=== PATIENT | male | born 1980 | race Caucasian/White ===

== ENCOUNTER 2019-06-12 21:19 | Day surgery (SDC) | payer BC ==
[2019-06-12] MEDS ORDERED: Ondansetron 4 MG/2 ML SDV IVPUSH ONE (23:42)
[2019-06-12] MEDS ORDERED: Sodium Chloride 0.9% 1,000 ML IV SCH (23:45)
--- NOTE | 2019-06-12 23:48 | EDM.PDOC ---
ED HPI GENERAL MEDICAL PROBLEM - General Chief Complaint: Abdominal Pain Stated Complaint: SIDE PAIN Time Seen by Provider: 06/12/19 23:27 Source of Information: Reports: Patient, Family History Limitations: Reports: No Limitations - History of Present Illness INITIAL COMMENTS - FREE TEXT/NARRATIVE: Mr. De is a very pleasant 39-year-old man with no chronic medical problems and no past surgical history, who now presents to the ED stating that he developed right upper quadrant abdominal pain around 15:30 this afternoon. He describes the pain as sharp and crampy in character. Initially it was constant , however, has now become more wax and wane. His pain is made worse if he is sitting, standing, or walking, made better if he lies supine. At times the pain has radiated to his right groin into his right flank. He has had nausea, but no emesis. No constipation or diarrhea. No urinary symptoms or gross hematuria. No prior similar symptoms. The patient took some TUMS several hours ago, which did not help. He did not take any other vtxf-qid-xtebtar medications. He last ate around 18:00. The patient has had about a 30 pound intentional weight loss since 02/21/2019, otherwise, however, he has not had any recent fever, chills, cough, dyspnea, chest pain, palpitations, nausea, vomiting, constipation, diarrhea, abdominal pain, urinary symptoms, recent bloody bowel movements or black bowel movements, recent joint aches, headaches, or rashes. The patient does not have a PCP. He does not recall when his last general physical exam was. He received an influenza vaccine this season. Right Middle Abdomen Pain Score (Numeric/FACES): 8 - Related Data Allergies Allergy/AdvReac Type Severity Reaction Status Date / Time No Known Allergies Allergy Verified 06/12/19 21:51 Home Meds: Home Meds . 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 ED EXAM, GI/ABD - Physical Exam Exam: See Below Exam Limited By: No Limitations General Appearance: Alert, WD/WN, No Apparent Distress Eyes: Bilateral: Normal Appearance, EOMI Ears: Normal External Exam, Hearing Grossly Normal Nose: Normal Inspection Throat/Mouth: Normal Inspection, Normal Lips, Normal Voice, No Airway Compromise Head: Atraumatic, Normocephalic Neck: Normal Inspection, Full Range of Motion Respiratory/Chest: No Respiratory Distress, Lungs Clear, Normal Breath Sounds, No Accessory Muscle Use Cardiovascular: Normal Peripheral Pulses, Regular Rate, Rhythm, No Edema, No Gallop, No JVD, No Murmur, No Rub GI/Abdominal Exam: Normal Bowel Sounds, Soft, No Organomegaly, No Distention, No Abnormal Bruit, No Mass, Tender (Right lower quadrant and far right abdomen only. Completely nontender elsewhere, including to the right upper quadrant and epigastrium. Rovsing sign absent. Psoas sign, obturator sign, and heel drop sign all present.) (Male) Exam: Deferred Rectal (Males) Exam: Deferred Back Exam: Normal Inspection, Full Range of Motion, CVA Tenderness (R). No: CVA Tenderness (L) Extremities: Normal Inspection, Normal Range of Motion, No Pedal Edema, Normal Capillary Refill Neurological: Alert, Oriented, Normal Cognition, No Motor/Sensory Deficits Psychiatric: Normal Affect Skin Exam: Warm, Dry, Intact, Normal Color, No Rash Course - Vital Signs Last Recorded V/S: Last Vital Signs Temp 36.7 C 06/12/19 21:47 Pulse 87 06/12/19 21:47 Resp 18 06/12/19 21:47 BP 108/75 06/12/19 21:47 Pulse Ox 94 L 06/12/19 21:47 - Orders/Labs/Meds Orders: Active Orders 24 hr Category Date Time Status Patient Status [ADT] Routine ADT 06/13/19 01:42 Active Abdomen Pelvis w Cont [CT] Stat Exams 06/12/19 23:42 Taken Sodium Chloride 0.9% [Normal Saline] 1,000 ml Med 06/12/19 23:45 Active IV ASDIRECTED metroNIDAZOLE/Normal Saline [Flagyl 500 MG in NS 100 ML Med 06/13/19 01:29 Active ] 500 mg Premix Bag 1 bag IV ONETIME Schedule Procedure [COMM] Stat Oth 06/13/19 01:50 Ordered Medication Orders Sodium Chloride (Normal Saline) 1,000 mls @ 150 mls/hr IV ASDIRECTED SUSAN Last Admin: 06/12/19 23:49 Dose: 150 mls/hr Metronidazole 500 mg/ Premix 100 mls @ 100 mls/hr IV ONETIME STA Stop: 06/13/19 02:28 Last Admin: 06/13/19 02:14 Dose: 100 mls/hr Labs: Laboratory Tests 06/12/19 06/12/19 06/13/19 Range/Units 23:45 23:45 01:10 WBC 20.18 H (4.23-9.07) K/mm3 RBC 5.10 (4.63-6.08) M/mm3 Hgb 14.6 (13.7-17.5) gm/dl Hct 43.3 (40.1-51.0) % MCV 84.9 (79.0-92.2) fl MCH 28.6 (25.7-32.2) pg MCHC 33.7 (32.2-35.5) g/dl RDW Std Deviation 43.0 (35.1-43.9) fL Plt Count 252 (163-337) K/mm3 MPV 10.3 (9.4-12.3) fl Neutrophils % (Manual) 85 H (40-60) % Band Neutrophils % 0 (0-10) % Lymphocytes % (Manual) 8 L (20-40) % Atypical Lymphs % 0 % Monocytes % (Manual) 7 (2-10) % Eosinophils % (Manual) 0 L (0.8-7.0) % Basophils % (Manual) 0 L (0.2-1.2) Platelet Estimate Adequate RBC Morph Comment Normal Sodium 140 (136-145) mEq/L Potassium 4.1 (3.5-5.1) mEq/L Chloride 103 (98-107) mEq/L Carbon Dioxide 23 (21-32) mEq/L Anion Gap 18.1 H (5-15) BUN 17 (7-18) mg/dL Creatinine 1.3 (0.7-1.3) mg/dL Est Cr Clr Drug Dosing 73.81 mL/min Estimated GFR (MDRD) > 60 (>60) mL/min BUN/Creatinine Ratio 13.1 L (14-18) Glucose 115 H (74-106) mg/dL Calcium 8.8 (8.5-10.1) mg/dL Total Bilirubin 0.7 (0.2-1.0) mg/dL AST 13 L (15-37) U/L ALT 34 (16-63) U/L Alkaline Phosphatase 74 (46-116) U/L Total Protein 7.1 (6.4-8.2) g/dl Albumin 3.9 (3.4-5.0) g/dl Globulin 3.2 gm/dL Albumin/Globulin Ratio 1.2 (1-2) Urine Color Yellow (Yellow) Urine Appearance Clear (Clear) Urine pH 6.0 (5.0-8.0) Ur Specific [place] 1.025 (1.005-1.030) Urine Protein Negative (Negative) Urine Glucose (UA) Negative (Negative) Urine Ketones 3+ H (Negative) Urine Occult Blood Trace-lysed H (Negative) Urine Nitrite Negative (Negative) Urine Bilirubin 1+ H (Negative) Urine Urobilinogen 0.2 (0.2-1.0) Ur Leukocyte Esterase Negative (Negative) U Hyaline Cast (Auto) 0-5 (0-5) /lpf Urine RBC 0-5 (0-5) /hpf Urine WBC 0-5 (0-5) /hpf Urine WBC Clumps Not seen (NOT SEEN) /hpf Urine Bacteria Rare (FEW) /hpf Urine Mucus Few (FEW) /hpf Meds: Medications Generic Name Dose Route Start Last Admin Trade Name Freq PRN Reason Stop Dose Admin Sodium Chloride 1,000 mls @ 150 mls/hr 06/12/19 23:45 06/12/19 23:49 Normal Saline IV 150 mls/hr ASDIRECTED SUSAN Administration Metronidazole 500 mg/ Premix 100 mls @ 100 mls/hr 06/13/19 01:29 06/13/19 02: 14 IV 06/13/19 02:28 100 mls/hr ONETIME STA Administration Discontinued Medications Generic Name Dose Route Start Last Admin Trade Name Freq PRN Reason Stop Dose Admin Bupivacaine HCl/Epinephrine Bitart Confirm 06/13/19 01:58 Marcaine 0.5%/Epinephrine 1:200,000 Administered 06/13/19 01:59 Dose 50 ml .ROUTE .STK-MED ONE Fentanyl Confirm 06/13/19 02:04 Sublimaze Administered 06/13/19 02:05 Dose 250 mcg .ROUTE .STK-MED ONE Cefoxitin Sodium 2 gm/ Premix 50 mls @ 100 mls/hr 06/13/19 01:28 06/13/19 01: 37 IV 06/13/19 01:57 100 mls/hr ONETIME STA Administration Lactated Ringer's Confirm 06/13/19 01:33 Ringers, Lactated Administered 06/13/19 01:34 Dose 1,000 mls @ as directed .ROUTE .STK-MED ONE Lidocaine HCl Confirm 06/13/19 02:03 Xylocaine-Mpf 1% Administered 06/13/19 02:04 Dose 4 mls @ as directed .ROUTE .STK-MED ONE Lidocaine/Epinephrine Confirm 06/13/19 01:58 Xylocaine 1% With Epinephrine 1:100,000 Administered 06/13/19 01:59 Dose 40 ml .ROUTE .STK-MED ONE Midazolam HCl Confirm 06/13/19 02:04 Versed 1 Mg/Ml Administered 06/13/19 02:05 Dose 2 mg .ROUTE .STK-MED ONE Ondansetron HCl 4 mg 06/12/19 23:42 06/12/19 23:50 Zofran IVPUSH 06/12/19 23:43 4 mg ONETIME ONE Administration Ondansetron HCl Confirm 06/13/19 02:03 Zofran Administered 06/13/19 02:04 Dose 4 mg .ROUTE .STK-MED ONE Propofol Confirm 06/13/19 02:03 Diprivan 20 Ml Administered 06/13/19 02:04 Dose 200 mg .ROUTE .STK-MED ONE Rocuronium Fisher Confirm 06/13/19 02:03 Zemuron Administered 06/13/19 02:04 Dose 50 mg .ROUTE .STK-MED ONE - Re-Assessments/Exams Free Text/Narrative Re-Assessment/Exam: 06/12/19 23:43 While the patient is indicating pain in his right upper quadrant, he is most tender in his right lower quadrant, and obturator, psoas, and heel drop signs are all present. He also has right CVA tenderness, and while this raises concern that the patient could have an unusual presentation of ureterolith, I think it still more likely that he has appendicitis. I have therefore ordered a work-up that includes blood work, a urinalysis, and a CT scan of his abdomen and pelvis with oral and IV contrast. In the meantime, the patient will be given IV fluid and IV Zofran. He declined an offer for pain medication. 06/13/19 01:21 CT of the abdomen and pelvis with oral and IV contrast as read by vRgina as " Acute appendicitis." 06/13/19 01:[address] Butsamante at 01:23. She will prefer to take the patient to the OR tonight, as opposed to tomorrow, because the OR schedule is already full. She asked that we start the patient on 2 g of IV cefoxitin and 500 mg of IV metronidazole. She will come to the ED to evaluate the patient. We are aware that there are no beds for the patient to be admitted to postoperatively. This was discussed between Dr. Bustamante, Valeria RN, and myself. Valeria HANDLEY is willing to take care of the patient postoperatively here in the ED. This will prevent the patient from having to be transferred to [place], or even farther, as both of [facility] hospitals may be full, as well. Departure - Departure Time of Disposition: 01:36 Disposition: DC/Tfer to [facility] Condition: Good Clinical Impression: Acute appendicitis Qualifiers: Acute appendicitis type: with localized peritonitis Appendicitis gangrene presence: unspecified whether gangrene present Appendicitis perforation presence : without perforation Appendicitis abscess presence: without abscess Qualified Code(s): K35.30 - Acute appendicitis with localized peritonitis, without perforation or gangrene - Discharge Information *PRESCRIPTION DRUG MONITORING PROGRAM REVIEWED*: Not Applicable *COPY OF PRESCRIPTION DRUG MONITORING REPORT IN PATIENT NURY: Not Applicable Sepsis Event Note - Evaluation Sepsis Screening Result: No Definite Risk - Focused Exam Vital Signs: Vital Signs Temp Pulse Resp BP Pulse Ox 06/12/19 21:47 36.7 C 87 18 108/75 94 L Date Exam was Performed: 06/13/19 Time Exam was Performed: 02:22 - My Orders Last 24 Hours: My Active Orders 06/12/19 23:42 Abdomen Pelvis w Cont [CT] Stat 06/12/19 23:45 Sodium Chloride 0.9% [Normal Saline] 1,000 ml IV ASDIRECTED 06/13/19 01:29 metroNIDAZOLE/Normal Saline [Flagyl 500 MG in NS 100 ML] 500 mg Premix Bag 1 bag IV ONETIME 06/13/19 01:42 Patient Status [ADT] Routine - Assessment/Plan Last 24 Hours: My Active Orders 06/12/19 23:42 Abdomen Pelvis w Cont [CT] Stat 06/12/19 23:45 Sodium Chloride 0.9% [Normal Saline] 1,000 ml IV ASDIRECTED 06/13/19 01:29 metroNIDAZOLE/Normal Saline [Flagyl 500 MG in NS 100 ML] 500 mg Premix Bag 1 bag IV ONETIME 06/13/19 01:42 Patient Status [ADT] Routine
[2019-06-13] MEDS ORDERED: cefOXitin 2 GM in Premix Bag 1 BAG IV STA (01:28)
[2019-06-13] MEDS ORDERED: metroNIDAZOLE/Normal Saline 500 MG in Premix Bag 1 BAG IV STA (01:29)
[2019-06-13] MEDS ORDERED: Lactated Ringers 1,000 ML ONE ×2 (01:33→03:11)
[2019-06-13] MEDS ORDERED: Lidocaine 1% with EPINEPHrine 1:100,000 20 ML MDV ONE (01:58)
[2019-06-13] MEDS ORDERED: Bupivacaine 0.5%/EPINEPHrine 1:200,000 50 ML MDV ONE (01:58)
--- NOTE | 2019-06-13 02:00 | PCM.PREANE ---
Preanesthetic Assessment - Procedure Proposed Procedure: lap appy - Anesthesia/Transfusion/Family Hx Anesthesia History: No Prior Anesthesia Family History of Anesthesia Reaction: No Transfusion History: No Prior Transfusion(s) - Review of Systems General: Fever (yesterday), Chills Pulmonary: No Symptoms Cardiovascular: No Symptoms Gastrointestinal: Abdominal Pain (yesterday) Neurological: No Symptoms Other: Reports: None - Physical Assessment NPO Status Date: 06/13/19 NPO Status Time: 01:00 (contrast dye) Vital Signs: Last Vital Signs Temp 98.0 F 06/12/19 21:47 Pulse 87 06/12/19 21:47 Resp 18 06/12/19 21:47 BP 108/75 06/12/19 21:47 Pulse Ox 94 L 06/12/19 21:47 Height: 5 ft 8 in Weight: 92.079 kg ASA Class: 2E Mental Status: Alert & Oriented x3 Airway Class: Mallampati = 1 Dentition: Reports: Normal Dentition Thyro-Mental Finger Breadths: 3 Mouth Opening Finger Breadths: 3 ROM/Head Extension: Full Lungs: Clear to Auscultation, Normal Respiratory Effort Cardiovascular: Regular Rate, Regular Rhythm - Lab Values: Laboratory Last Values WBC 20.18 K/mm3 (4.23-9.07) H 06/12/19 23:45 RBC 5.10 M/mm3 (4.63-6.08) 06/12/19 23:45 Hgb 14.6 gm/dl (13.7-17.5) 06/12/19 23:45 Hct 43.3 % (40.1-51.0) 06/12/19 23:45 MCV 84.9 fl (79.0-92.2) 06/12/19 23:45 MCH 28.6 pg (25.7-32.2) 06/12/19 23:45 MCHC 33.7 g/dl (32.2-35.5) 06/12/19 23:45 RDW Std Deviation 43.0 fL (35.1-43.9) 06/12/19 23:45 Plt Count 252 K/mm3 (163-337) 06/12/19 23:45 MPV 10.3 fl (9.4-12.3) 06/12/19 23:45 Neutrophils % (Manual) 85 % (40-60) H 06/12/19 23:45 Band Neutrophils % 0 % (0-10) 06/12/19 23:45 Lymphocytes % (Manual) 8 % (20-40) L 06/12/19 23:45 Atypical Lymphs % 0 % 06/12/19 23:45 Monocytes % (Manual) 7 % (2-10) 06/12/19 23:45 Eosinophils % (Manual) 0 % (0.8-7.0) L 06/12/19 23:45 Basophils % (Manual) 0 (0.2-1.2) L 06/12/19 23:45 Platelet Estimate Adequate 06/12/19 23:45 RBC Morph Comment Normal 06/12/19 23:45 Sodium 140 mEq/L (136-145) 06/12/19 23:45 Potassium 4.1 mEq/L (3.5-5.1) 06/12/19 23:45 Chloride 103 mEq/L (98-107) 06/12/19 23:45 Carbon Dioxide 23 mEq/L (21-32) 06/12/19 23:45 Anion Gap 18.1 (5-15) H 06/12/19 23:45 BUN 17 mg/dL (7-18) 06/12/19 23:45 Creatinine 1.3 mg/dL (0.7-1.3) 06/12/19 23:45 Est Cr Clr Drug Dosing 73.81 mL/min 06/12/19 23:45 Estimated GFR (MDRD) > 60 mL/min (>60) 06/12/19 23:45 BUN/Creatinine Ratio 13.1 (14-18) L 06/12/19 23:45 Glucose 115 mg/dL (74-106) H 06/12/19 23:45 Calcium 8.8 mg/dL (8.5-10.1) 06/12/19 23:45 Total Bilirubin 0.7 mg/dL (0.2-1.0) 06/12/19 23:45 AST 13 U/L (15-37) L 06/12/19 23:45 ALT 34 U/L (16-63) 06/12/19 23:45 Alkaline Phosphatase 74 U/L (46-116) 06/12/19 23:45 Total Protein 7.1 g/dl (6.4-8.2) 06/12/19 23:45 Albumin 3.9 g/dl (3.4-5.0) 06/12/19 23:45 Globulin 3.2 gm/dL 06/12/19 23:45 Albumin/Globulin Ratio 1.2 (1-2) 06/12/19 23:45 Urine Color Yellow (Yellow) 06/13/19 01:10 Urine Appearance Clear (Clear) 06/13/19 01:10 Urine pH 6.0 (5.0-8.0) 06/13/19 01:10 Ur Specific [place] 1.025 (1.005-1.030) 06/13/19 01:10 Urine Protein Negative (Negative) 06/13/19 01:10 Urine Glucose (UA) Negative (Negative) 06/13/19 01:10 Urine Ketones 3+ (Negative) H 06/13/19 01:10 Urine Occult Blood Trace-lysed (Negative) H 06/13/19 01:10 Urine Nitrite Negative (Negative) 06/13/19 01:10 Urine Bilirubin 1+ (Negative) H 06/13/19 01:10 Urine Urobilinogen 0.2 (0.2-1.0) 06/13/19 01:10 Ur Leukocyte Esterase Negative (Negative) 06/13/19 01:10 U Hyaline Cast (Auto) 0-5 /lpf (0-5) 06/13/19 01:10 Urine RBC 0-5 /hpf (0-5) 06/13/19 01:10 Urine WBC 0-5 /hpf (0-5) 06/13/19 01:10 Urine WBC Clumps Not seen /hpf (NOT SEEN) 06/13/19 01:10 Urine Bacteria Rare /hpf (FEW) 06/13/19 01:10 Urine Mucus Few /hpf (FEW) 06/13/19 01:10 - Allergies Allergies/Adverse Reactions: Allergies Allergy/AdvReac Type Severity Reaction Status Date / Time No Known Allergies Allergy Verified 06/12/19 21:51 - Blood Blood Available: No - Acknowledgements Anesthesia Type Planned: General Anesthesia Pt an Appropriate Candidate for the Planned Anesthesia: Yes Alternatives and Risks of Anesthesia Discussed w Pt/Guardian: Yes Pt/Guardian Understands and Agrees with Anesthesia Plan: Yes PreAnesthesia Questionnaire - Past Health History Medical/Surgical History: Denies Medical/Surgical History Cardiovascular History: Reports: None Respiratory History: Reports: None Gastrointestinal History: Reports: None Endocrine/Metabolic History: Reports: Obesity/BMI 30+ - SUBSTANCE USE Smoking Status *Q: Never Smoker Tobacco Use Within Last Twelve Months: No Second Hand Smoke Exposure: No Days Per Week of Alcohol Use: 2 Number of Drinks Per Day: 1 Total Drinks Per Week: 2 Recreational Drug Use History: No - HOME MEDS Home Medications: Home Meds . [No Known Home Meds] 06/12/19 [History] - CURRENT (IN HOUSE) MEDS Current Meds: Current Medications Sodium Chloride (Normal Saline) 1,000 mls @ 150 mls/hr IV ASDIRECTED SUSAN Last Admin: 06/12/19 23:49 Dose: 150 mls/hr Cefoxitin Sodium 2 gm/ Premix 50 mls @ 100 mls/hr IV ONETIME STA Stop: 06/13/19 01:57 Last Admin: 06/13/19 01:37 Dose: 100 mls/hr Metronidazole 500 mg/ Premix 100 mls @ 100 mls/hr IV ONETIME STA Stop: 06/13/19 02:28 Discontinued Medications Lactated Ringer's (Ringers, Lactated) Confirm Administered Dose 1,000 mls @ as directed .ROUTE .STK-MED ONE Stop: 06/13/19 01:34 Ondansetron HCl (Zofran) 4 mg IVPUSH ONETIME ONE Stop: 06/12/19 23:43 Last Admin: 06/12/19 23:50 Dose: 4 mg
--- NOTE | 2019-06-13 02:01 | PCM.HP.2 ---
H&P History of Present Illness - General Date of Service: 06/13/19 Admit Problem/Dx: Admission Diagnosis/Problem Admission Diagnosis/Problem Appendicitis Source of Information: Patient, Provider History Limitations: Reports: No Limitations - History of Present Illness Initial Comments - Free Text/Narative: The patient is a 39-year-old gentleman who presents with a 1 day history of abdominal pain. He reports the pain started in the right upper quadrant and migrated to the right lower quadrant. He has had loss of appetite. He denies any nausea vomiting diarrhea or hematochezia. He has no prior occurrence of this pain. Seen and evaluated in the emergency department. He had laboratory evaluation which revealed a white count of 20,000. He also underwent a CT of the abdomen and pelvis which showed a distended appendix consistent with appendicitis Right Middle Abdomen Pain Score (Numeric/FACES): 8 - Related Data Allergies/Adverse Reactions: Allergies Allergy/AdvReac Type Severity Reaction Status Date / Time No Known Allergies Allergy Verified 06/12/19 21:51 Home Medications: Home Meds . 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) H&P Review of Systems - Review of Systems: Review Of Systems: See Below General: Reports: Fever HEENT: Reports: No Symptoms Pulmonary: Reports: No Symptoms Cardiovascular: Reports: No Symptoms Gastrointestinal: Reports: Abdominal Pain, Anorexia Genitourinary: Reports: No Symptoms Musculoskeletal: Reports: No Symptoms Skin: Reports: No Symptoms Hematologic/Lymphatic: Reports: No Symptoms Exam - Exam Exam: See Below - Vital Signs Vital Signs: Last Vital Signs Temp 36.7 C 06/12/19 21:47 Pulse 87 06/12/19 21:47 Resp 18 06/12/19 21:47 BP 108/75 06/12/19 21:47 Pulse Ox 94 L 06/12/19 21:47 Weight: 92.079 kg - Exam Quality Assessment: No: Supplemental Oxygen General: Alert, Oriented HEENT: Conjunctiva Clear, EOMI Neck: Supple Lungs: Normal Respiratory Effort GI/Abdominal Exam: Soft, Guarding, Rebound (in RLQ), Tender (in RLQ) Extremities: Normal Inspection, No Pedal Edema Peripheral Pulses: 2+: Dorsalis Pedis (L), Dorsalis Pedis (R) Skin: Warm, Dry, Intact Neurological: Cranial Nerves Intact Neuro Extensive - Mental Status: Normal Mood/Affect - Patient Data Lab Results Last 24 hrs: Laboratory Results - last 24 hr 06/12/19 06/12/19 06/13/19 Range/Units 23:45 23:45 01:10 WBC 20.18 H (4.23-9.07) K/mm3 RBC 5.10 (4.63-6.08) M/mm3 Hgb 14.6 (13.7-17.5) gm/dl Hct 43.3 (40.1-51.0) % MCV 84.9 (79.0-92.2) fl MCH 28.6 (25.7-32.2) pg MCHC 33.7 (32.2-35.5) g/dl RDW Std Deviation 43.0 (35.1-43.9) fL Plt Count 252 (163-337) K/mm3 MPV 10.3 (9.4-12.3) fl Neutrophils % (Manual) 85 H (40-60) % Band Neutrophils % 0 (0-10) % Lymphocytes % (Manual) 8 L (20-40) % Atypical Lymphs % 0 % Monocytes % (Manual) 7 (2-10) % Eosinophils % (Manual) 0 L (0.8-7.0) % Basophils % (Manual) 0 L (0.2-1.2) Platelet Estimate Adequate RBC Morph Comment Normal Sodium 140 (136-145) mEq/L Potassium 4.1 (3.5-5.1) mEq/L Chloride 103 (98-107) mEq/L Carbon Dioxide 23 (21-32) mEq/L Anion Gap 18.1 H (5-15) BUN 17 (7-18) mg/dL Creatinine 1.3 (0.7-1.3) mg/dL Est Cr Clr Drug Dosing 73.81 mL/min Estimated GFR (MDRD) > 60 (>60) mL/min BUN/Creatinine Ratio 13.1 L (14-18) Glucose 115 H (74-106) mg/dL Calcium 8.8 (8.5-10.1) mg/dL Total Bilirubin 0.7 (0.2-1.0) mg/dL AST 13 L (15-37) U/L ALT 34 (16-63) U/L Alkaline Phosphatase 74 (46-116) U/L Total Protein 7.1 (6.4-8.2) g/dl Albumin 3.9 (3.4-5.0) g/dl Globulin 3.2 gm/dL Albumin/Globulin Ratio 1.2 (1-2) Urine Color Yellow (Yellow) Urine Appearance Clear (Clear) Urine pH 6.0 (5.0-8.0) Ur Specific [place] 1.025 (1.005-1.030) Urine Protein Negative (Negative) Urine Glucose (UA) Negative (Negative) Urine Ketones 3+ H (Negative) Urine Occult Blood Trace-lysed H (Negative) Urine Nitrite Negative (Negative) Urine Bilirubin 1+ H (Negative) Urine Urobilinogen 0.2 (0.2-1.0) Ur Leukocyte Esterase Negative (Negative) U Hyaline Cast (Auto) 0-5 (0-5) /lpf Urine RBC 0-5 (0-5) /hpf Urine WBC 0-5 (0-5) /hpf Urine WBC Clumps Not seen (NOT SEEN) /hpf Urine Bacteria Rare (FEW) /hpf Urine Mucus Few (FEW) /hpf Result Diagrams: 06/12/19 23:45 06/12/19 23:45 Sepsis Event Note - Evaluation Sepsis Screening Result: No Definite Risk - Focused Exam Vital Signs: Vital Signs Temp Pulse Resp BP Pulse Ox 06/12/19 21:47 36.7 C 87 18 108/75 94 L Date Exam was Performed: 06/13/19 Time Exam was Performed: 01:56 *Q Meaningful Use (ADM) - VTE Risk Assess *Q Each Risk Factor Represents 1 Point: Minor Surgery Planned Total Score 1 Point Risk Factors: 1 - Problem List (1) Acute appendicitis SNOMED Code(s): 45917888 ICD Code: K35.80 - UNSPECIFIED ACUTE APPENDICITIS Status: Acute Current Visit: Yes Qualifiers: Acute appendicitis type: with localized peritonitis Appendicitis gangrene presence: unspecified whether gangrene present Appendicitis perforation presence: without perforation Appendicitis abscess presence: without abscess Qualified Code(s): K35.30 - Acute appendicitis with localized peritonitis, without perforation or gangrene Problem List Initiated/Reviewed/Updated: Yes Orders Last 24hrs: Active Orders 24 hr Category Date Time Status Patient Status [ADT] Routine ADT 06/13/19 01:42 Active Abdomen Pelvis w Cont [CT] Stat Exams 06/12/19 23:42 Taken Sodium Chloride 0.9% [Normal Saline] 1,000 ml Med 06/12/19 23:45 Active IV ASDIRECTED cefOXitin [Mefoxin in Dextrose,Iso-Osm 2 GM/50 ML] 2 gm Med 06/13/19 01:28 Active Premix Bag 1 bag IV ONETIME metroNIDAZOLE/Normal Saline [Flagyl 500 MG in NS 100 ML Med 06/13/19 01:29 Active ] 500 mg Premix Bag 1 bag IV ONETIME Schedule Procedure [COMM] Stat Oth 06/13/19 01:50 Ordered Medication Orders Sodium Chloride (Normal Saline) 1,000 mls @ 150 mls/hr IV ASDIRECTED [facility] Last Admin: 06/12/19 23:49 Dose: 150 mls/hr Cefoxitin Sodium 2 gm/ Premix 50 mls @ 100 mls/hr IV ONETIME STA Stop: 06/13/19 01:57 Last Admin: 06/13/19 01:37 Dose: 100 mls/hr Metronidazole 500 mg/ Premix 100 mls @ 100 mls/hr IV ONETIME STA Stop: 06/13/19 02:28 Assessment/Plan Comment:: 39 y/o man with acute appendicitis - plan for laparoscopic appendectomy, possible open. Discussed risks of bleeding , infection, and damage to surrounding organs. His written consent was obtained. - IV cefoxitin and IV metronidazole - IV fluid resuscitation - will assess need for inpatient stay based on intraoperative findings. Coretta Barker MD General Surgery
[2019-06-13] MEDS ORDERED: Rocuronium 50 MG/5 ML Vial ONE (02:03)
[2019-06-13] MEDS ORDERED: Lidocaine 1% 4 ML ONE (02:03)
[2019-06-13] MEDS ORDERED: Ondansetron 4 MG/2 ML SDV ONE (02:03)
[2019-06-13] MEDS ORDERED: Propofol 200 MG/20 ML SDV ONE (02:03)
[2019-06-13] MEDS ORDERED: fentaNYL 250 MCG/5 ML SDV ONE (02:04)
[2019-06-13] MEDS ORDERED: Midazolam 1 MG/ML 2 ML SDV ONE (02:04)
[2019-06-13] MEDS ORDERED: Ketorolac 30 MG/ML SDV ONE (02:26)
[2019-06-13] MEDS ORDERED: fentaNYL 100 MCG/2 ML SDV IVPUSH PRN (02:29)
[2019-06-13] MEDS ORDERED: HYDROmorphone 0.5 MG/0.5 ML Syringe IVPUSH PRN (02:29)
[2019-06-13] MEDS ORDERED: Ondansetron 4 MG/2 ML SDV IVPUSH PRN (02:29)
[2019-06-13] MEDS ORDERED: ePHEDrine Sulfate/0.9% NaCl/Pf 25 MG/5 ML SYRINGE IV ONE (02:46)
[2019-06-13] MEDS ORDERED: fentaNYL 100 MCG/2 ML SDV ONE (03:07)
[2019-06-13] MEDS ORDERED: HYDROmorphone 0.5 MG/0.5 ML Syringe ONE (03:19)
--- NOTE | 2019-06-13 03:40 | PCM.OPNOTE ---
- General Post-Op/Procedure Note Date of Surgery/Procedure: 06/13/19 Operative Procedure(s): Laparoscopic appendectomy Findings: Acute appendicitis, not perforated Pre Op Diagnosis: Acute appendicitis Post-Op Diagnosis: Same Anesthesia Technique: General ET Tube Primary Surgeon: Coretta Barker Anesthesia Provider: Allen Brown Pathology: appendix Fluid Replacement, Intraop: 1,500 Output, Urine Amount: 0 EBL in mLs: 10 Complications: none apparent Condition: Good
--- NOTE | 2019-06-13 03:48 | PCM.PRNOTE ---
- Free Text/Narrative Note: Operative Report Date of surgery: June 13, 2019 Preoperative diagnosis: acute appendicitis. Postoperative diagnosis: same Procedure performed: laparoscopic appendectomy Surgeon: Dr. Coretta Barker Anesthesia: General Parachute Inspector: Allen Brown CRNA Estimated blood loss 10 mL IV fluids: 1500 mL Urine output: 0 mL, patient voided prior to entering the operating room Drains and lines: None Findings: Nonperforated acute appendicitis, visualized left indirect inguinal hernia Pathology: Appendix Indications for procedure: Is a 39-year-old male who presented with acute appendicitis. He was diagnosed via clinical picture and CT scan. He was consented for laparoscopic appendectomy after discussion of risks of bleeding infection and damage to surrounding intra-abdominal structures. His written consent was obtained. Description of procedure: The patient was taken back to the operating room and placed in supine position on the operating table. SCD boots were in place and functional prior to the start of the procedure. Preoperative antibiotics were administered; metronidazole 500 mg IV and cefoxitin 2 g IV. The patient had successful induction of general anesthesia and was intubated without difficulty. Pt was then prepped and draped in standard surgical fashion and a timeout was performed. We began by making a 15 mm incision in the infraumbilical skin and deepened down to level of the fascia which was then grasped and incised sharply. We entered the peritoneum and then placed stay sutures of 0 Vicryl on the fascial edges. A 12 mm Amor port was then placed into the umbilicus and the balloon was inflated. The abdomen was insufflated to 15 mmHg a 5 mm camera was inserted. There was no evidence of any injury created from entry into the abdomen. A TA P block was performed using mixed 1% lidocaine with epinephrine and 0.5% bupivacaine with epinephrine . We then proceeded to place a 5 mm port under direct visualization in the suprapubic midline and an additional 5mm port in the left lower quadrant. During this process we did visualize a moderate sized left indirect inguinal hernia. The patient was then positioned in Trendelenburg with right side elevated and we proceeded to mobilize the appendix. The appendix was retrocecal with significant adhesions between the terminal ileum cecum and appendix. The terminal ileum was also adherent to the abdominal wall. The LigaSure was used to take down these adhesions and attachment points to visualize the retrocecal appendix. The appendix was then mobilized off of the terminal ileum. The mesoappendix was taken down with the LigaSure. The appendix was then taken with the tissue stapler. The specimen was in place in the Endo Catch bag. We then inspected the area. There was no active bleeding at the end of this case. The abdomen was then desufflated and the umbilical fascia closed with 0 Vicryl sutures and the stay sutures were tied, effectively closing the umbilical port site. The skin was then reapproximated at all port sites using a 4-0 Monocryl subcutaneous stitch and covered with Dermabond surgical glue. The patient tolerated the procedure. He was extubated and transported to the PACU in stable condition. All sponge and needle counts were correct. Coretta Barker MD General Surgery
[2019-06-13] MEDS ORDERED: Acetaminophen/HYDROcodone 325-5 MG Tab PO PRN (03:53)
--- NOTE | 2019-06-13 03:53 | PCM.POSTAN ---
POST ANESTHESIA ASSESSMENT - MENTAL STATUS Mental Status: Alert, Oriented - VITAL SIGNS Vital Signs: Last Vital Signs Temp 98.0 F 06/12/19 21:47 Pulse 87 06/12/19 21:47 Resp 18 06/12/19 21:47 BP 108/75 06/12/19 21:47 Pulse Ox 94 L 06/12/19 21:47 135/85 98% 105 13 97.8 - RESPIRATORY Respiratory Status: Respiratory Rate WNL, Airway Patent, O2 Saturation Stable, Supplemental Oxygen - CARDIOVASCULAR CV Status: Pulse Rate WNL, Blood Pressure Stable - GASTROINTESTINAL GI Status: No Symptoms - PAIN Pain Score: 0 - POST OP HYDRATION Hydration Status: Adequate & Stable
--- NOTE | 2019-06-13 04:17 | PCM48HPAN ---
Post Anesthesia Note - EVALUATION WITHIN 48HRS OF ANESTHETIC Vital Signs in Normal Range: Yes Patient Participated in Evaluation: Yes Respiratory Function Stable: Yes Airway Patent: Yes Cardiovascular Function Stable: Yes Hydration Status Stable: Yes Pain Control Satisfactory: Yes Nausea and Vomiting Control Satisfactory: Yes Mental Status Recovered: Yes Vital Signs: Last Vital Signs Temp 98.0 F 06/13/19 04:00 Pulse 97 06/13/19 04:00 Resp 13 06/13/19 04:02 BP 125/75 06/13/19 04:00 Pulse Ox 98 06/13/19 04:02
--- NOTE | 2019-06-13 07:17 | CT ---
CT abdomen and pelvis Technique: Multiple axial sections were obtained from above the dome of the diaphragm inferiorly through the pubic symphysis. Intravenous contrast and oral contrast utilized. Delayed images were also obtained through the abdomen and pelvis. Comparison: No prior abdominal imaging. Findings: Short appendix is seen. Appendix is enlarged shows several increased areas of calcification presumably due to appendicoliths. Inflammatory change is seen around this finding and findings are felt compatible with appendicitis. Other findings: The visualized lung bases show nothing acute. Liver contains no focal parenchymal abnormality. Spleen appears within normal limits. Low density lesion is identified within the upper right kidney which is felt compatible with a cyst measuring about 6 mm. Very minimal cortical lesion is noted within the mid to lower right kidney and upper left kidney believed to represent other small cysts which are too small to measure by Hounsfield unit measurements. Adrenal glands show no nodule. Pancreas is within normal limits. Gallbladder contains no calcified gallstones. Aorta shows no aneurysm. No retroperitoneal adenopathy or mesenteric abnormalities are seen. No pelvic mass or adenopathy is identified. No free fluid is seen. Delayed images show contrast excretion from both kidneys. Contrast is noted within both ureters as well as bladder with no ureteral obstruction. Bone window settings were reviewed which appear within normal limits for the patient's age. No acute osseous finding is appreciated. Impression: 1. Findings compatible with appendicitis as described above. 2. Other findings believed to be incidental and nonacute. Diagnostic code #5 This report was dictated in [place] Standard Time I agree with preliminary report from [facility], finalized on 06/13/19, 2:19 AM Central Time
== END 2019-06-13 | disposition home or self-care (01) ==
LOC: JD.ED 21:19 → JD.SDS 06-13 01:42
PROVIDERS: ATTEND Surgery
DX: K35.30 Acute appendicitis with localized peritonitis, without perforation or gangrene (principal); E66.9 Obesity, unspecified; Z68.30 Body mass index [BMI] 30.0-30.9, adult
CPT/HCPCS: 36415; 44970; 74177; 80053; 81001; 85007; 85027; 96361; 96374; 96376; 99285; J0694; J1170; J1885; J2001; J2250; J2405; J2704; J3010; J3490; J7030; J7120; 00840; J0171; J2710